=== PATIENT | male | born 1975 | race Caucasian/White ===

== ENCOUNTER 2022-02-21 23:17 | Inpatient (IN) | payer OTHER, MEDICAID ==
[~2022-02-21] VITALS: Ht 165.1 cm; Wt 100.2 kg
[2022-02-22] MEDS ORDERED: ACETAMINOPHEN 325MG TABLET PO STA (00:01)
[2022-02-22] MEDS ORDERED: IPRATROPIUM BROMIDE (0.02%) 0.5MG/2.5ML NEB HHN STA (00:04)
[2022-02-22] MEDS ORDERED: METHYLPREDNISOLONE SOD SUCC 125 MG/2 ML VIAL IV STA (00:04)
[2022-02-22] MEDS ORDERED: ALBUTEROL (0.083%) 2.5MG/3ML NEB HHN STA ×2 (00:04→02:24)
[2022-02-22] MEDS ORDERED: AZITHROMYCIN 500MG/250ML 250 ML IV ONE (00:15)
[2022-02-22] MEDS ORDERED: CEFTRIAXONE 1 G PREMIX 50 ML IV ONE (00:15)
[2022-02-22] MEDS ORDERED: SODIUM CHLORIDE 0.9% 1000ML BAG (SEPSIS BOLUS) IV ONE (00:15)
[2022-02-22] MEDS ORDERED: OSELTAMIVIR 75MG CAPSULE PO ONE (00:15)
[2022-02-22] MEDS ORDERED: ASPIRIN 81MG TABLET PO ONE (00:15)
[2022-02-22 00:29] LABS: BASOPHILS % 0.6 % (0.0-2.0); EOSINOPHILS % 4.1 % (0.0-5.0); HEMATOCRIT. 41.6 % (42.0-52.0); HEMOGLOBIN. 14.5 g/dL (14.0-18.0); LYMPHOCYTES % 14.8 % (20.0-50.0); MEAN CORPUSCULAR HEMOGLOBIN 30.3 pg (28.0-32.0); MEAN CORPUSCULAR VOLUME 87.1 fL (80.0-94.0); MEAN PLATELET VOLUME 6.8 fl (7.4-10.4); MONOCYTES % 8.3 % (2.0-8.0); NEUTROPHILS % 72.2 % (40.0-76.0); PLATELET 325 x1000/uL (130-400); RED BLOOD CELL COUNT 4.77 mill/uL (4.7-6.1); RED CELL DISTRIBUTION WIDTH 13.9 % (11.6-14.6)
[2022-02-22] MEDS ORDERED: MAGNESIUM 2 G PREMIX 50 ML IV ONE (00:30)
[2022-02-22 00:33] LABS: CHLORIDE 101 mEq/L (98-107)
[2022-02-22 02:32] LABS: CLARITY URINE CLEAR (CLEAR); COLOR URINE YELLOW (YELLOW); KETONES URINE NEGATIVE (NEGATIVE); LEUKOCYTE ESTERASE URINE NEGATIVE (NEGATIVE); NITRITE URINE NEGATIVE (NEGATIVE); OCCULT BLOOD URINE NEGATIVE (NEGATIVE); PROTEIN URINE NEGATIVE (NEGATIVE); SPECIFIC GRAVITY URINE 1.019 (1.005-1.030); UROBILINOGEN URINE 0.2 E.U./dL (0.2-1.0)
[2022-02-22] MEDS ORDERED: ARIP20TA16 PO (10:53)
[2022-02-22 10:58] VITALS: BP 112/72
[2022-02-22] MEDS ORDERED: IPRATROPIUM/ALBUTEROL 0.5-3(2.5)MG/3ML NEB HHN PRN ×2 (11:15→18:45)
[2022-02-22] MEDS ORDERED: ACETAMINOPHEN 325MG TABLET PO PRN ×2 (11:15→18:45)
[2022-02-22 12:00] VITALS: BP 135/82
[2022-02-22 16:00] VITALS: BP 132/77
[2022-02-22 20:00] VITALS: BP 128/82
[2022-02-22] MEDS: METHYLPREDNISOLONE SOD SUCC 40 MG/ML VIAL IV SCH (21:06)
[2022-02-23] VITALS: BP 107/62
[2022-02-23 04:00] VITALS: BP 107/66
[2022-02-23] MEDS: METHYLPREDNISOLONE SOD SUCC 40 MG/ML VIAL IV SCH (05:24)
[2022-02-23 08:05] LABS: BASOPHILS % 0.1 % (0.0-2.0); HEMATOCRIT. 41.3 % (42.0-52.0); LYMPHOCYTES % 7.5 % (20.0-50.0); MEAN CORPUSCULAR HEMOGLOBIN 29.7 pg (28.0-32.0); MEAN CORPUSCULAR VOLUME 87.3 fL (80.0-94.0); MONOCYTES % 3.1 % (2.0-8.0); NEUTROPHILS % 89.3 % (40.0-76.0); PLATELET 350 x1000/uL (130-400); RED BLOOD CELL COUNT 4.73 mill/uL (4.7-6.1); RED CELL DISTRIBUTION WIDTH 13.9 % (11.6-14.6)
[2022-02-23] MEDS ORDERED: ASPIRIN 81MG TABLET PO SCH (09:00)
[2022-02-23 09:20] LABS: CHLORIDE 106 mEq/L (98-107)
[2022-02-23 12:00] VITALS: BP 129/97
[2022-02-23] MEDS ORDERED: MED4 MT (12:17)
[2022-02-23 13:02] VITALS: BP 129/97
== END 2022-02-23 15:43 | disposition home or self-care (01) | DRG 203 ==
LOC: ER 23:29 → 6WST 02-22 03:43 → EDBEDREQTM 02-22 03:46 → EDBEDREQ 02-22 03:46 → ENRESERV 02-22 08:08
PROVIDERS: ADMIT Internal Medicine; ATTEND Internal Medicine
DX: J45.901 Unspecified asthma with (acute) exacerbation (principal); Z20.822 Contact with and (suspected) exposure to COVID-19; Z96.659 Presence of unspecified artificial knee joint
CPT/HCPCS: 36415; 71045; 80048; 80053; 81003; 83605; 83880; 84145; 84484; 85025; 86710; 87426; 87804; 93005; 94640; 94644; 99285; C9803; J0456; J0696; J2920; J2930; J7030